=== PATIENT | male | born 2000 | race Caucasian/White ===

== ENCOUNTER 2021-03-07 17:40 | Emergency (ER) | payer SELFPAY ==
--- NOTE | ~2021-03-07 | US_ITS ---
EXAMINATION: US SCROTUM CLINICAL INFORMATION: Testicular pain. COMPARISON: None TECHNIQUE: A sonogram of the scrotum was performed assessing mason-scale appearance and color Doppler flow. Spectral Doppler analysis of the arterial and venous flow were performed in the testes bilaterally. FINDINGS: RIGHT: Right testicle measures 4.4 x 2.3 x 3.4 cm, volume 17.5 mL. No focal testicular parenchymal lesions are visualized. Spectral Doppler analysis of the arterial and venous flow is normal in the right testis. Right epididymal head is normal in size and contains a small 3 mm cyst. No right hydrocele or varicocele is seen. Right epididymal Doppler flow is normal. LEFT: Left testicle measures 4.5 x 2.2 x 3.0 cm, volume 15.8 mL. No focal testicular parenchymal lesions are visualized. Spectral Doppler analysis of the arterial and venous flow is normal in the left testis. Left epididymal head is normal in size and contains 2 small cysts, 6 and 3 mm.. No left hydrocele or varicocele is seen. Left epididymal Doppler flow is normal. US/US scrotum IMPRESSION: Essentially negative study. No evidence of testicular torsion. Bilateral small cysts in the heads of the epididymides.
--- NOTE | ~2021-03-07 | US_ITS ---
EXAMINATION: US SCROTUM CLINICAL INFORMATION: Testicular pain. COMPARISON: None TECHNIQUE: A sonogram of the scrotum was performed assessing mason-scale appearance and color Doppler flow. Spectral Doppler analysis of the arterial and venous flow were performed in the testes bilaterally. FINDINGS: RIGHT: Right testicle measures 4.4 x 2.3 x 3.4 cm, volume 17.5 mL. No focal testicular parenchymal lesions are visualized. Spectral Doppler analysis of the arterial and venous flow is normal in the right testis. Right epididymal head is normal in size and contains a small 3 mm cyst. No right hydrocele or varicocele is seen. Right epididymal Doppler flow is normal. LEFT: Left testicle measures 4.5 x 2.2 x 3.0 cm, volume 15.8 mL. No focal testicular parenchymal lesions are visualized. Spectral Doppler analysis of the arterial and venous flow is normal in the left testis. Left epididymal head is normal in size and contains 2 small cysts, 6 and 3 mm.. No left hydrocele or varicocele is seen. Left epididymal Doppler flow is normal. US/US scrotum doppler IMPRESSION: Essentially negative study. No evidence of testicular torsion. Bilateral small cysts in the heads of the epididymides.
[2021-03-07 19:00] VITALS: BP 145/91; PULSE 79; RESP 16; TEMP 36.6; O2SAT 98; BMI 23.0
[2021-03-07 19:29] LABS: Glucose Urine UA NEG (NEG); Leukocyte Esterase Urine NEG (NEG); Nitrite Urine NEG (NEG); PH 6.5 (5.0-8.0); Specific Gravity - Urine 1.015 (1.005-1.025); Urine Blood NEG (NEG); Urine Ketones NEG (NEG); Urine Protein NEG (NEG-TRACE)
[2021-03-07 19:37] LABS: Appearance Urine CLEAR; Color Urine YELLOW
[2021-03-07 19:50] LABS: RBC Urine 0 /HPF (0); Squamous Epithelial Cell Urine TRACE /LPF; WBC Urine 0 /HPF (0-4)
--- NOTE | 2021-03-07 20:57 | ED_ITS ---
HPI - General Adult General Chief complaint: General Medical Stated complaint: Testicular pain Time Seen by Provider: 03/07/21 20:52 Source: patient Mode of arrival: ambulatory Limitations: no limitations History of Present Illness HPI narrative: Patient comes emergency room complaining of left testicular pain. Patient states he has been having mild discomfort for, earlier this afternoon he slipped accidentally off the couch, did not fall, however this exacerbated the pain. Patient denies penile discharge, no dysuria or hematuria. MD complaint: Testicular pain Related Data Previous Rx's Medication Instructions Recorded ibuprofen 600 mg PO TID PRN #10 tab 03/07/21 Allergies Allergy/AdvReac Type Severity Reaction Status Date / Time No Known Allergies Allergy Verified 03/07/21 20:58 Review of Systems Review of Systems: Constitutional : No Weight loss, No Fever, No Chills, No Night Sweats, No Fatigue, No Malaise ENT/Mouth : No Hearing loss, No Ear Pain, No Nasal Congestion, No Sinus Pain, No Hoarseness, No sore throat, No Rhinorrhea, No Swallowing Difficulty Eyes: No Eye Pain, No Swelling, No Redness, No Foreign Body, No Discharge, No Vision Changes Cardiovascular : No Chest Pain, No SOB, No Dyspnea on Exertion, No Orthopnea, No Edema, No Palpitations Respiratory : No Cough, No Sputum, No Wheezing, No Smoke Exposure, No Dyspnea Gastrointestinal : No Nausea, No Vomiting, No Diarrhea, No Constipation, No abdominal Pain, No Hematochezia, No Melena Genitourinary No Dysuria, No Urinary Frequency, No Hematuria, No Urinary Incontinence, No Urgency, No Flank Pain, No Urinary Flow Changes, No Hesitancy, complaining of left testicular pain, no penile discharge Musculoskeletal : No joint pain, No Myalgias, No Joint Swelling Skin : No Skin Lesions, No rash Neuro : No Weakness, No Numbness, No Paresthesias, No Loss of Consciousness, No Dizziness, No Headache Psych : No Anxiety/Panic, No Depression, No SI/HI/AH/VH, No Social Issues, Heme/Lymph: No Bruising, No Bleeding,No Lymphadenopathy Endocrine : No Polyuria, No Polydipsia, No Temperature Intolerance PMFSH Past Medical History Surgical History History of ankle surgery History of hand surgery Social History Social History Advance Directives: No Advance Directives Information Provided: Yes Physical Exam Vital Signs: Vital Signs: Last Vital Signs Temp 97.8 F 03/07/21 19:00 Pulse 79 03/07/21 19:00 Resp 16 03/07/21 19:00 BP 145/91 H 03/07/21 19:00 Pulse Ox 98 03/07/21 19:00 Body Mass Index 23.0 Appearance: Alert. Oriented X3. No acute distress. Eyes: Pupils equal, round and reactive to light. ENT: Pharynx normal. Neck: Normal inspection. Neck supple. No lymph nodes noted. No crepitus CVS: Normal heart rate and rhythm. Pulses normal. Normal S1 and S2 Respiratory: No respiratory distress. Breath sounds normal. No Wheezing. No rales Abdomen: Soft and nontender. No rigidity. No distention. : Normal male genitalia, mild testicular pain on the left side, no inguinal pain, right testicle within normal limits, painless Skin: Skin warm and dry. Normal skin color. Normal skin turgor. Extremities: No lower extremity edema. No lower extremity edema. No Lacerations. No Rash Neuro: Oriented X 3. No motor deficit. No sensory deficit. Moving all extermities. No slurred speech. Course Course Course Narrative: I discussed the ultrasound with the patient, no acute findings. Patient likely pulled a muscle. GC chlamydia pending. Patient states he did have unprotected sex over 2 months ago, he has not had any symptoms until a few days ago. It is unlikely patient has an STD. Medical Decision Making Lab Data Labs: Lab Results 03/07/21 Range/Units 19:20 Urine Color YELLOW Urine Appearance CLEAR Urine pH 6.5 (5.0-8.0) Ur Specific [place] 1.015 (1.005-1.025) Urine Protein NEG (NEG-TRACE) MG/DL Urine Glucose (UA) NEG (NEG) MG/DL Urine Ketones NEG (NEG) MG/DL Urine Blood NEG (NEG) Urine Nitrite NEG (NEG) Ur Leukocyte Esterase NEG (NEG) Urine RBC 0 (0) /HPF Urine WBC 0 (0-4) /HPF Ur Squamous Epith Cells TRACE /LPF Urine Bacteria NONE /LPF Imaging Data Testicular ultrasound: Radiologist's impression: FINDINGS: RIGHT: Right testicle measures 4.4 x 2.3 x 3.4 cm, volume 17.5 mL. No focal testicular parenchymal lesions are visualized. Spectral Doppler analysis of the arterial and venous flow is normal in the right testis. Right epididymal head is normal in size and contains a small 3 mm cyst. No right hydrocele or varicocele is seen. Right epididymal Doppler flow is normal. LEFT: Left testicle measures 4.5 x 2.2 x 3.0 cm, volume 15.8 mL. No focal testicular parenchymal lesions are visualized. Spectral Doppler analysis of the arterial and venous flow is normal in the left testis. Left epididymal head is normal in size and contains 2 small cysts, 6 and 3 mm.. No left hydrocele or varicocele is seen. Left epididymal Doppler flow is normal. US/US scrotum doppler IMPRESSION: Essentially negative study. No evidence of testicular torsion. Bilateral small cysts in the heads of the epididymides. Discharge Plan Discharge Clinical Impression: Left testicular pain Patient Disposition: Home, Self-Care Instructions: Testicle Pain (ED) Additional Instructions: Please follow-up with your primary care physician tomorrow. If you have any worsening or new symptoms, please return to the emergency room or call 911 Ibuprofen was sent to your pharmacy, [facility] on [address] [facility] Prescriptions: New ibuprofen 600 mg tablet 600 mg PO TID PRN (Reason: pain) Qty: 10 RF: 0
[2021-03-07] MEDS: Ibuprofen 600 MG TABLET PO (21:23)
[2021-03-07 21:24] VITALS: BP 129/87; PULSE 80; RESP 16
--- NOTE | 2021-03-07 21:29 | PC.NURSE ---
CT/NG obtained and sent. Pt medicated per DEC. VSS. Pt provided with DC paperwork.
[2021-03-08 12:47] LABS: CT PCR NOT DETECTED (Not Detect.); NG PCR NOT DETECTED (Not Detect.)
== END 2021-03-07 21:29 | disposition home or self-care (01) ==
PROVIDERS: Emergency Provider Emergency Medicine
DX: N50.812 Left testicular pain (principal)
CPT/HCPCS: 76870; 81001; 87491; 87591; 93975; 99284